=== PATIENT | female | born 1945 | race Native Hawaiian/Other Pacific Islander ===

== ENCOUNTER 2022-10-29 07:54 | Emergency (ER) | payer OTHER ==
[2022-10-29 15:03] LABS: POTASSIUM 4.1 mmol/L (3.6-5.2)
[2022-10-29 15:55] LABS: PLATELET COUNT 205 K/uL (152-353)
== END 2022-10-29 11:00 | disposition left against medical advice (07) ==
LOC: ED 07:54
PROVIDERS: Emergency Medicine Emergency Medical Services
DX: G45.9 Transient cerebral ischemic attack, unspecified (principal); I10 Essential (primary) hypertension
CPT/HCPCS: 36415; 80048; 81000; 84484; 85027; 85610; 93005; 96374; 99284